=== PATIENT | male | born 1965 | race Caucasian/White ===

== ENCOUNTER → 2021-11-10 10:01 | Outpatient (BNVA) | payer OTHER, SELFPAY | PROVIDERS: Visit Provider Family Medicine | DX: Z00.00 Encounter for general adult medical examination without abnormal findings (principal); K62.5 Hemorrhage of anus and rectum | CPT/HCPCS: 80053; 85025 ==

== ENCOUNTER 2021-11-29 07:49 | Day surgery (SDC) | payer OTHER, SELFPAY ==
[2021-11-26 13:19] VITALS: BMI 22.1
[2021-11-29] VITALS (7 sets, daily range): BP systolic 108–132; BP diastolic 69–86; PULSE 67–83; RESP 16–20; TEMP 36.6–37.1; O2SAT 93–99
[2021-11-29] MEDS: sodium chloride 0.9% 1,000 ML 30 ML IV (08:43)
[2021-11-29] MEDS: acetaminophen 1,000 MG/100 ML PIGGYBACK 400 MG IV (08:44)
--- NOTE | 2021-11-29 09:34 | W.PM.OPSUD ---
Surgery/Procedure H&P Update DATE OF PROCEDURE: November 29, 2021 DATE H&P PERFORMED: 11/17/21 PREOP DIAGNOSIS: Bleeding per rectum with hemorrhoid PRIMARY INDICATION FOR PROCEDURE: The same PLANNED PROCEDURE: Operation Date: 11/29/21 09:10 Proposed Procedures p Colonoscopy [id number] rectal bleeding(Not Applicable) - Abraham De La Rosa MD s Hemorroidectomy(Not Applicable) - Abraham De La Rosa MD
--- NOTE | 2021-11-29 09:45 | ANES.PREANE2 ---
Pre-Anesthetic Assessment Height/Weight: Height 1.75 m Weight 68.039 kg Temp Pulse Resp BP Pulse Ox 98.8 F 78 16 132/78 99 11/29/21 08:09 11/29/21 08:09 11/29/21 08:09 11/29/21 08:09 11/29/21 08:09 Preop Diagnosis: Bleeding per rectum with hemorrhoid Operation Date: 11/29/21 09:10 Proposed Procedures p Colonoscopy [id number]/K62.5 rectal bleeding(Not Applicable) - Abraham De La Rosa MD s Hemorroidectomy(Not Applicable) - Abraham De La Rosa MD Familial anesthetic complications: None Was Beta Fidencio taken within 24 hours: N/A Was Clonidine taken within 24 hours: N/A Last intake: Intake Last Liquid Date 11/29/21 Last Liquid Time 03:00 Last Solid Date 11/28/21 Last Solid Time 08:00 Social No alcohol and No tobacco Exam alert, oriented x 3, clear to auscultation bilaterally and regular rate & rhythm Airway Submandibular: within normal limits Cervical ROM: within normal limits Mallampati: Class II Dentition: chipped History/ROS No significant history except as noted Anesthetic Plan ASA status: 1 Anesthesia: Choice Medications/Allergies Home Medications Medication Instructions Recorded Confirmed Last Taken Type No Known Home Medications 11/10/21 11/26/21 Unknown History Allergies Allergy/AdvReac Type Severity Reaction Status Date / Time No Known Allergies Allergy Verified 11/19/21 12:41 Current Medications Generic Name Dose Route Start Last Admin Trade Name Freq PRN Reason Stop Dose Admin Sodium Chloride 1,000 mls @ 30 mls/hr 11/29/21 08:15 11/29/21 08:43 Sodium Chloride 0.9% IV 11/30/21 08:14 30 mls/hr .Q24H ROQUE Administration PFSH Anesthesia Family History Brother Diabetes Social History Smoking and tobacco status: never smoked Alcohol intake: never Data Anesthesia Cardiac Studies: No Data to Display
[2021-11-29] MEDS: piperacillin-tazobactam 3.375 GM in sodium chloride 0.9% (plus) 50 ML IV (10:13)
--- NOTE | 2021-11-29 10:58 | P.OP_ITS ---
Operative Report Date of procedure: November 29, 2021 Pre-op diagnosis: Preop Diagnosis Bleeding per rectum with hemorrhoid Procedure done: 1-Colonoscopy with polypectomy using hot snare. 2-Examination under anesthesia with hemorrhoidectomy Specimens removed/disposition: Right sided colon polyp Sigmoid colon polyps left and left lower lateral hemorrhoid Surgeon: Abraham De La Rosa MD Laborer Salvage: manufacturing lab technician Liz Circulating nurse Leigh Wang Anesthesia: General (LMA ADAPTIVE PHYSICAL EDUCATION SPECIALIST Pawel Hoover) Estimated blood loss (mL): 10 Procedure: Patient was identified in the holding area, was taken to the OR placed first in supine position,IV antibiotics were given with induction time-out was done verifying the patient's name, date of , and procedure, all were in agreement. LMA was placed by the anesthesia provider, patient was placed in left lateral position. Perianal examination showed left lower and upper lateral hemorrhoids Following that a digital rectal examination was done no evidence OF anorectal masses the colonoscope was then introduced via the anus under direct visualization, all the way to the cecum, prep of the colon was appropriate, there was right ascending colon polyp identified and a cold snare was applied but the polyp was not retrieved. Sigmoid colon polyps were identified and hot snare was applied followed by application of endoclips resolution x2 in the sigmoid area, the sigmoid colon polyps were retrieved. Otherwise there were no masses or diverticular disease or strictures, the scope was then retrieved back ,time for withdrawal exceeded 9 minutes, gas was deflated on the way out. Retroflex was done and showed normal findings. Prep and drape of the perineum was done under the usual sterile technique All pressure points were padded . Injection of 30 ml Exparel to block the pudendal nerve bilaterally A lubricated self-retaining proctoscope was inserted, identified left lower and upper lateral hemorrhoids. The left upper lateral was bigger, there was an additional smaller right lower lateral hemorrhoid. Without clinical significance. Started by introducing a wet sponge to prevent any residual colon prep from contaminating the site of the excision, and under direct visualization I was able to hold the mass with hemostats on the left lower lateral hemorrhoid first and a hand-held harmonic scalpel was used and the hemorrhoid was excised totally followed by running 3-0 chromic catgut. Attention was now deviated towards the left upper lateral hemorrhoid and the same technique was used followed by 3-0 chromic catgut. The right lower lateral hemorrhoid was smaller to be excised so I decided not to remove it. Hemostasis was achieved, irrigation was done, sponge was retrieved. A piece of Surgicel /piece of Xeroform impregnated with lidocaine 2% jelly was placed in the anal canal, attached to 2-0 silk suture, to help retrieving it by the patient later on ABDs were applied followed by surgical pants Patient was repositioned to supine position, counts of instruments,needles and sponges were completed at the end of the procedure. Patient was taken to the recovery area in stable condition I was present for the whole entire procedure Postoperative recommendations to have a surveillance colonoscopy in 3 to 5 years
[2021-11-29] MEDS: HYDROcodone-acetaminophen 5-325 mg Tablet 1 TAB PO (12:00)
--- NOTE | 2021-11-29 14:53 | ANE.PACU2 ---
Inpatient post-anesthesia follow up: Airway intact: Yes Vital signs: Temperature 98.2 F Pulse Rate 76 Respiratory Rate 16 Blood Pressure 129/86 Pulse Oximetry 97 Oxygen Delivery Me thod Room Air Oxygen Flow Rate 6 Fraction of Inspir ed Oxygen Hydration adequate: Yes Nausea and vomiting: No Pain level: 2 Mental status: Baseline
== END 2021-11-29 12:15 | disposition home or self-care (01) ==
PROVIDERS: Visit Provider Surgery
PROC: 0DJD8ZZ Inspection of Lower Intestinal Tract, Via Natural or Artificial Opening Endoscopic (ICD-10-PCS; CPT 45378; principal; 2021-11-29 09:00)
PROC: (CPT 45385; 2021-11-29 09:00)
DX: K62.5 Hemorrhage of anus and rectum (principal); D12.5 Benign neoplasm of sigmoid colon; K64.4 Residual hemorrhoidal skin tags; Z80.0 Family history of malignant neoplasm of digestive organs
CPT/HCPCS: 45385; 46250; 88304; 88305; C9290; J1100; J2405; J2543; J2704; J3010; J3490; J7030